=== PATIENT | male | born 2000 | race Caucasian/White ===

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

== ENCOUNTER 2022-01-07 12:51 | Emergency (ER) | payer OTHER ==
[2022-01-07] MEDS ORDERED: Ondansetron PF 4 MG/2 ML Vial ONE (13:36)
[2022-01-07 13:46] LABS: #Monocytes 0.3 10x3/uL (0.0-1.1); #Neutrophils 8.7 10x3/uL (1.5-8.4); %Basophils 0.3 % (0.0-2.0); %Eosinophils 0.3 % (0.0-6.0); %Lymphocytes 14.7 % (18.0-47.0); %Monocytes 2.9 % (0.0-10.0); %Neutrophils 81.5 % (40.0-75.0); Hemoglobin 14.9 g/dL (13.5-17.5); Mean Corpuscular HGB CONC 34.7 g/dL (32.0-36.0); Mean Corpuscular Hemoglobin 28.9 pg (27.0-33.0); Mean Corpuscular Volume 83.3 fl (81.2-95.1); Mean Platelet Volume 10.5 fl (7.4-10.4); Platelet Count 251 10x3/uL (150-450); RBC Distribution Width 12.3 % (11.5-14.5); Red Blood Cell (RBC) Count 5.16 10x6/uL (4.32-5.72); White Blood Cell (WBC) Count 10.7 10x3/uL (3.5-10.5)
[2022-01-07] MEDS ORDERED: Haloperidol Lactate 5 MG/ML VIAL ONE (13:55)
[2022-01-07 14:01] LABS: ALT (SGPT) 16 U/L (8-55); AST (SGOT) 17 U/L (10-45); Albumin 5.3 g/dL (3.5-5.0); Alkaline Phosphatase 67 U/L (50-130); Anion Gap 18 mmol/L (10-20); BUN (Urea Nitrogen) 10 mg/dL (8.4-21.0); Bilirubin, Total 0.7 mg/dL (0.2-1.2); Calc. Creatinine Clearance 0 mL/min (70-130); Calcium 10.6 mg/dL (7.8-10.44); Carbon Dioxide 20 mmol/L (22-29); Chloride 106 mmol/L (98-107); Globulin 3.6 g/dL (2.4-3.5); Glucose 144 mg/dL (70-105); Lipase 13 U/L (8-78); Protein, Total 8.9 g/dL (6.0-8.3); Sodium 140 mmol/L (136-145)
== END 2022-01-07 16:30 | disposition home or self-care (01) ==
LOC: CSHERS 12:51
DX: R11.2 Nausea with vomiting, unspecified (principal); R10.13 Epigastric pain; K21.9 Gastro-esophageal reflux disease without esophagitis
CPT/HCPCS: 36415; 80053; 83690; 85025; 96374; 96375; J1630; J2405

== ENCOUNTER 2022-01-09 13:01 | Emergency (ER) | payer OTHER ==
[2022-01-09] MEDS ORDERED: Ketorolac Tromethamine 30 MG/ML VIAL ONE (13:53)
[2022-01-09 13:55] LABS: #Monocytes 0.2 10x3/uL (0.0-1.1); #Neutrophils 5.7 10x3/uL (1.5-8.4); %Basophils 0.3 % (0.0-2.0); %Lymphocytes 13.7 % (18.0-47.0); %Monocytes 2.8 % (0.0-10.0); %Neutrophils 83.1 % (40.0-75.0); Hemoglobin 14.9 g/dL (13.5-17.5); Mean Corpuscular HGB CONC 34.5 g/dL (32.0-36.0); Mean Corpuscular Hemoglobin 28.9 pg (27.0-33.0); Mean Corpuscular Volume 83.7 fl (81.2-95.1); Mean Platelet Volume 10.6 fl (7.4-10.4); Platelet Count 270 10x3/uL (150-450); RBC Distribution Width 12.1 % (11.5-14.5); Red Blood Cell (RBC) Count 5.16 10x6/uL (4.32-5.72); White Blood Cell (WBC) Count 6.8 10x3/uL (3.5-10.5)
[2022-01-09] MEDS ORDERED: Haloperidol Lactate 5 MG/ML VIAL ONE (13:59)
[2022-01-09 14:11] LABS: ALT (SGPT) 16 U/L (8-55); AST (SGOT) 19 U/L (10-45); Albumin 5.4 g/dL (3.5-5.0); Alkaline Phosphatase 65 U/L (50-130); Anion Gap 21 mmol/L (10-20); BUN (Urea Nitrogen) 10 mg/dL (8.4-21.0); Calc. Creatinine Clearance 0 mL/min (70-130); Calcium 10.7 mg/dL (7.8-10.44); Carbon Dioxide 20 mmol/L (22-29); Chloride 105 mmol/L (98-107); Globulin 4.3 g/dL (2.4-3.5); Glucose 137 mg/dL (70-105); Lipase 13 U/L (8-78); Potassium 4.1 mmol/L (3.5-5.1); Protein, Total 9.7 g/dL (6.0-8.3); Sodium 142 mmol/L (136-145)
[2022-01-09 15:09] LABS: Actual Bicarbonate (HCO3v) 21 mEq/L (22-28); Base Excess -3.9 mEq/L (-2.0 to +3.0); Calcium, Ionized (venous) 1.14 mmol/L (1.16-1.32); Chloride (VBG) 105 mmol/L (98-106); Hemoglobin (Hb) 14.1 g/dL (13.2-17.3); Potassium (VBG) 3.95 mmol/L (3.70-5.30); Puncture Site Other Site; RapidComm Collect By CBL; Sodium 137.7 mmol/L (133-146); pH (venous) 7.37 (7.32-7.43)
== END 2022-01-09 14:02 | disposition home or self-care (01) ==
LOC: CSHERS 13:01
DX: R11.15 Cyclical vomiting syndrome unrelated to migraine (principal); R11.0 Nausea; K21.9 Gastro-esophageal reflux disease without esophagitis
CPT/HCPCS: 36415; 76705; 80053; 82805; 83605; 83690; 85025; 96374; 96375; J1630; J1885